=== PATIENT | female | born 1960 | race Caucasian/White ===

== ENCOUNTER 2020-11-14 11:59 | Inpatient (IN) | payer MEDICAID ==
[~2020-11-14] VITALS: Ht 152.4 cm; Wt 95.7 kg
[~2020-11-14 11:59] MED LIST: ACCUNEB SO1.25 MG/1 INH; ACETAMINOPHEN-1 EAC1 PO; ALBUTEROL2.5 MG/3 M INH; ALIGN4 MG PO; AMARYL2 MG PO; ANALGESIC; ANASPAZ0.125 MG SL; ASPERCREME177.4 ML TOP; ATENOLOL; ATENOLOL 50MG T50 M1 PO; BENTYL 10 MG CA10 M1 PO; BIOTIN1 MG PO; BOSWELLIA PO; BUTRANS1 EAC1 TRANSDERM; CALCIUM PO; CENTRUM SILVER1 EAC4 PO; CINNAMON PO; CIPRO500 MG PO; CIPROFLOXACIN500 M3 PO; COLESTID1 GM PO; CRANBERRY500 M1 PO; FELDENE20 MG PO; FISH OIL 1,001000 M2 PO; FLAXSEED1000 MG PO; FLEXERIL PO; GINGER ROOT550 MG PO; GLUCOPHAGE XR500 MG PO; GLUCOSAMINE &1 EACH PO; GYMNEMA SYLVESTR1 GM PO; HCTZ; HYDROCHLOROTH12.5 M1 PO; HYDROCHLOROTHIA25 M1 PO; HYDROCHLOROTHIA25 M2 PO; HYDROCODON-ACE1 EAC7 PO; JANUVIA50 MG PO; KEFLEX250 MG PO; LEVOTHYROXIN0.025 MG; LEVOTHYROXIN0.025 MG PO; LEVOTHYROXINE0.05 MG PO; LEVSIN0.125 MG PO; LEVSIN0.125 MG SUBLING; MAGNESIUM250 M1 PO; METFORMIN HCL500 MG PO; MILK THISTLE140 M2 PO; MULTI VITAMIN1 EACH PO; NICOTINE TRANSD14 M1 TD; ONDANSETRON HCL4 M2 PO; ONE DAILY MULT1 EAC2 PO; OXYCODONE HCL 55 MG PO; PERCOCET 5-3251 EACH; PERCOCET PO; PRILOSEC 20 MG20 MG PO; PRIMROSE PO; PROTONIX40 M4 PO; PROZAC PO; PROZAC10 MG PO; PROZAC20 MG PO; REGLAN 10 MG TA10 MG PO; REGLAN 5 MG TAB5 MG PO; REQUIP 0.25 M0.25 M1 PO; ROBAXIN 750 MG750 M1 PO; SKELAXIN 800 M800 M1 PO; ULTRACET; ULTRACET TABLE1 EACH PO; VALERIAN ROOT PO; VICTOZA0.6 MG/0.1; VICTOZA0.6 MG/0.1 SUBQ; VISTARIL 25 MG25 M1 PO; VITAMIN D2000 UNIT PO; VITAMIN D32000 UNI1 PO; VITAMIN E400 UNIT PO; VYTORIN; VYTORIN 10-201 EACH PO; ZIAC PO; ZOFRAN4 MG PO; [UNRECOGNIZED DRUG - MIXTURE] PO; [UNRECOGNIZED DRUG - OTHER]; [UNRECOGNIZED DRUG - OTHER] PO
[2020-11-14] MEDS ORDERED: HYDROCHLOROTHIA25 M1 PO (12:14)
[2020-11-14 13:08] LABS: CALCIUM 9.5 mg/dL (8.5-10.1); CREATININE 0.8 mg/dL (0.6-1.3); POTASSIUM 3.9 mmol/L (3.5-5.1)
[2020-11-14 13:13] LABS: ALBUMIN 3.6 g/dL (3.4-5.0); TOTAL BILIRUBIN 0.7 mg/dL (<0.1-1.0); TOTAL PROTEIN 7.3 g/dL (6.4-8.2)
[2020-11-14 14:10] LABS: ABSOLUTE EOSINOPHILS 0.6 thou/uL (0.0-0.7); ABSOLUTE LYMPHOCYTES 1.2 thou/uL (0.8-5.3); ABSOLUTE MONOCYTES 0.5 thou/uL (0.0-1.2); BASOPHILS 0.5 %; EOSINOPHILS 7.8 %; HEMATOCRIT 44.5 % (37.0-47.0); HEMOGLOBIN 15.3 gm/dL (12.0-15.0); LYMPHOCYTES 16.2 %; MCH 28.9 pg (26.0-34.0); MCHC 34.3 g/dL (28.0-37.0); MCV 84.3 fL (80.0-100.0); MONOCYTES 6.8 %; NUCLEATED RBCS 0 /100WBC; PLATELET COUNT* 178 thou/uL (150-400); POLYS 68.7 %; RBC 5.29 mil/uL (4.20-5.00); WBC 7.3 thou/uL (4.0-11.0)
[2020-11-14 16:15] VITALS: BP 120/69
[2020-11-14 17:00] VITALS: BP 136/60
[2020-11-14 19:38] VITALS: BP 136/60
[2020-11-15 00:11] VITALS: BP 117/62
[2020-11-15 04:53] LABS: ABSOLUTE BASOPHILS 0.1 thou/uL (0.0-0.2); ABSOLUTE EOSINOPHILS 0.8 thou/uL (0.0-0.7); ABSOLUTE LYMPHOCYTES 2.5 thou/uL (0.8-5.3); ABSOLUTE MONOCYTES 0.9 thou/uL (0.0-1.2); ABSOLUTE NEUTROPHILS 5.4 thou/uL (1.6-8.1); BASOPHILS 0.5 %; EOSINOPHILS 7.9 %; HEMATOCRIT 40.9 % (37.0-47.0); HEMOGLOBIN 14.1 gm/dL (12.0-15.0); LYMPHOCYTES 25.8 %; MCH 29.2 pg (26.0-34.0); MCHC 34.4 g/dL (28.0-37.0); MCV 84.8 fL (80.0-100.0); MONOCYTES 9.7 %; MPV 6.9 fl. (7.2-11.1); NUCLEATED RBCS 0 /100WBC; PLATELET COUNT* 169 thou/uL (150-400); POLYS 56.1 %; RBC 4.83 mil/uL (4.20-5.00); RDW-CV 13.7 % (10.5-14.5); WBC 9.6 thou/uL (4.0-11.0)
[2020-11-15 05:13] LABS: CREATININE 0.8 mg/dL (0.6-1.3)
[2020-11-15 07:50] VITALS: BP 125/62
[2020-11-15] MEDS ORDERED: HYDROCODON-ACE1 EAC7 PO (10:17)
[2020-11-15 11:34] VITALS: BP 136/60
[2020-11-16 02:06] LABS: GLYCOHEMOGLOBIN (HGB A1C) 7.2 % (4.8-5.6)
== END 2020-11-15 13:16 | disposition home or self-care (01) | DRG 563 ==
LOC: M.ERS 11:59 → M.TBA-ER 12:56 → M.ORTHSURG 16:20
PROVIDERS: Family Medicine; ADMIT Internal Medicine; ATTEND Internal Medicine
PROC: 0S9C3ZZ Drainage of Right Knee Joint, Percutaneous Approach (ICD-10-PCS; principal; 2020-11-14)
PROC: 2W3QXYZ Immobilization of Right Lower Leg using Other Device (ICD-10-PCS; 2020-11-14)
DX: S82.101A Unspecified fracture of upper end of right tibia, initial encounter for closed fracture (principal); M25.061 Hemarthrosis, right knee; I10 Essential (primary) hypertension; E11.9 Type 2 diabetes mellitus without complications; E03.9 Hypothyroidism, unspecified; G89.29 Other chronic pain; M54.9 Dorsalgia, unspecified; F17.210 Nicotine dependence, cigarettes, uncomplicated; E78.00 Pure hypercholesterolemia, unspecified; W18.39XA Other fall on same level, initial encounter; Z20.822 Contact with and (suspected) exposure to COVID-19; Z79.899 Other long term (current) drug therapy; Z79.84 Long term (current) use of oral hypoglycemic drugs; Z91.09 Other allergy status, other than to drugs and biological substances; Z90.710 Acquired absence of both cervix and uterus; Z98.891 History of uterine scar from previous surgery; Z90.49 Acquired absence of other specified parts of digestive tract; Z88.8 Allergy status to other drugs, medicaments and biological substances; Y93.89 Activity, other specified; Y92.89 Other specified places as the place of occurrence of the external cause; Y99.8 Other external cause status